=== PATIENT | female | born 1950 | race Caucasian/White ===

== ENCOUNTER 2017-09-04 14:48 | Emergency (ER) | payer MEDICARE, OTHER ==
--- NOTE | 2017-09-04 15:14 | RAD ---
LEFT SHOULDER 3 VIEWS: Date: 09/04/17 HISTORY: Pain. COMPARISON: None. FINDINGS: No acute fracture. No malalignment. Acromioclavicular joint is normal. There are some phleboliths along the left anterolateral chest wall. IMPRESSION: No acute fracture or malalignment. POS: [facility]
[2017-09-04] MEDS ORDERED: Ondansetron ODT 4 MG TAB ONE (16:33)
[2017-09-04] MEDS ORDERED: Morphine 4 MG/ML VIAL ONE (16:33)
== END 2017-09-04 17:03 | disposition home or self-care (01) ==
LOC: ERS 14:48
DX: M25.512 Pain in left shoulder (principal); G89.29 Other chronic pain; F41.9 Anxiety disorder, unspecified; F31.9 Bipolar disorder, unspecified; G40.909 Epilepsy, unspecified, not intractable, without status epilepticus; Z86.73 Personal history of transient ischemic attack (TIA), and cerebral infarction without residual deficits; Z85.528 Personal history of other malignant neoplasm of kidney; Z85.820 Personal history of malignant melanoma of skin
CPT/HCPCS: 96372; J2270; Q0162

== ENCOUNTER 2018-12-03 14:15 | Emergency (ER) | payer MEDICARE, OTHER ==
[2018-12-03] MEDS ORDERED: methylPREDNISolone Sod Succ/PF 125 MG/2 ML VIAL ONE (14:50)
--- NOTE | 2018-12-03 15:18 | RAD ---
2 VIEW CHEST: Date: 12/03/18 HISTORY: Cough. FINDINGS: Lungs are clear. Heart and mediastinum unremarkable. Osseous structures unremarkable. IMPRESSION: No acute abnormality. POS: [facility]
[2018-12-03 15:19] LABS: #Eosinphils 0.1 thou/uL (0.0-0.7); #Lymphocytes 1.1 thou/uL (1.20-3.40); #Monocytes 0.3 thou/uL (0.11-0.59); #Neutrophils 2.7 thou/uL (1.40-6.50); %Basophils 0.2 % (0.0-1.0); %Eosinophils 1.3 % (0.0-10.0); %Lymphocytes 25.3 % (21.0-51.0); %Monocytes 7.8 % (0.0-10.0); %Neutrophils 65.3 % (42.0-75.0); Mean Corpuscular HGB CONC 34.6 g/dL (32.0-36.0); Mean Corpuscular Hemoglobin 32.5 pg (27.0-31.0); Mean Platelet Volume 7.4 fL (7.4-10.4); Platelet Count 235 thou/uL (130-400); RBC Distribution Width 11.6 % (11.5-14.5); Red Blood Cell (RBC) Count 4.01 mill/uL (4.20-5.40); White Blood Cell (WBC) Count 4.2 thou/uL (4.8-10.8)
[2018-12-03 15:45] LABS: ALT (SGPT) 33 U/L (8-55); AST (SGOT) 24 U/L (5-34); Albumin 4.5 g/dL (3.4-4.8); Alkaline Phosphatase 94 U/L (40-150); Anion Gap 13 mmol/L (10-20); BUN (Urea Nitrogen) 20 mg/dL (9.8-20.1); Bilirubin, Total 0.2 mg/dL (0.2-1.2); Calc. Creatinine Clearance 0 mL/min (70-130); Calcium 9.6 mg/dL (7.8-10.44); Carbon Dioxide 23 mmol/L (23-31); Chloride 102 mmol/L (98-107); Estimated GFR-MDRD 37; Globulin 2.4 g/dL (2.4-3.5); Glucose 106 mg/dL (80-115); Potassium 4.2 mmol/L (3.5-5.1); Protein, Total 6.9 g/dL (6.0-8.3); Sodium 134 mmol/L (136-145)
== END 2018-12-03 16:08 | disposition home or self-care (01) ==
LOC: ERS 14:15
DX: J44.0 Chronic obstructive pulmonary disease with (acute) lower respiratory infection (principal); J18.9 Pneumonia, unspecified organism; J44.1 Chronic obstructive pulmonary disease with (acute) exacerbation; F31.9 Bipolar disorder, unspecified; F41.9 Anxiety disorder, unspecified; G40.909 Epilepsy, unspecified, not intractable, without status epilepticus; Z86.73 Personal history of transient ischemic attack (TIA), and cerebral infarction without residual deficits; Z85.820 Personal history of malignant melanoma of skin; Z79.899 Other long term (current) drug therapy; Z85.528 Personal history of other malignant neoplasm of kidney
CPT/HCPCS: 36415; 71046; 80053; 85025; 94640; 96374; J2930; J7620

== ENCOUNTER 2019-06-27 08:04 | Emergency (ER) | payer MEDICARE ==
[2019-06-27] MEDS ORDERED: Ketorolac Tromethamine 30 MG/ML VIAL ONE (08:31)
[2019-06-27 08:50] LABS: #Eosinphils 0.1 thou/uL (0.0-0.7); #Lymphocytes 1.4 thou/uL (1.20-3.40); #Monocytes 0.6 thou/uL (0.11-0.59); #Neutrophils 2.7 thou/uL (1.40-6.50); %Eosinophils 1.8 % (0.0-10.0); %Lymphocytes 29.3 % (21.0-51.0); %Monocytes 12.4 % (0.0-10.0); %Neutrophils 55.5 % (42.0-75.0); Hemoglobin 12.8 g/dL (12.0-16.0); Mean Corpuscular Hemoglobin 32.6 pg (27.0-31.0); Mean Platelet Volume 7.9 fL (7.4-10.4); Platelet Count 248 thou/uL (130-400); Red Blood Cell (RBC) Count 3.91 mill/uL (4.20-5.40); White Blood Cell (WBC) Count 4.9 thou/uL (4.8-10.8)
[2019-06-27 09:06] LABS: ALT (SGPT) 32 U/L (8-55); AST (SGOT) 26 U/L (5-34); Albumin 4.5 g/dL (3.4-4.8); Alkaline Phosphatase 112 U/L (40-110); Anion Gap 13 mmol/L (10-20); BUN (Urea Nitrogen) 22 mg/dL (9.8-20.1); Bilirubin, Total 0.3 mg/dL (0.2-1.2); Calc. Creatinine Clearance 0 mL/min (70-130); Calcium 9.7 mg/dL (7.8-10.44); Carbon Dioxide 24 mmol/L (23-31); Chloride 102 mmol/L (98-107); Estimated GFR-MDRD 37; Globulin 2.4 g/dL (2.4-3.5); Glucose 90 mg/dL (80-115); Potassium 4.3 mmol/L (3.5-5.1); Protein, Total 6.9 g/dL (6.0-8.3); Sodium 135 mmol/L (136-145)
--- NOTE | 2019-06-27 09:29 | RAD ---
Exam: Chest one view HISTORY:Fever. Comparison: 11/21/2016, 04/28/2019 FINDINGS: Cardiac silhouette: Normal Aorta: Unremarkable Pulmonary vessels: Normal Costophrenic angles: Clear LUNGS: No masses or consolidation. Pneumothorax: None Osseous abnormalities: None IMPRESSION: No acute cardiopulmonary process.
[2019-06-27] MEDS ORDERED: Dexamethasone 4 MG TAB ONE ×2 (10:59→11:01)
== END 2019-06-27 11:15 | disposition home or self-care (01) ==
LOC: ERS 08:04
DX: J44.1 Chronic obstructive pulmonary disease with (acute) exacerbation (principal); F31.9 Bipolar disorder, unspecified; F41.9 Anxiety disorder, unspecified
CPT/HCPCS: 36415; 71045; 80053; 83605; 83880; 84484; 85025; 87040; 93005; 93010; 94640; 96361; 96374; J1885; J7620; J8540

== ENCOUNTER 2020-03-05 04:11 | Emergency (ER) | payer MEDICARE | END 2020-03-05 05:01 | disposition home or self-care (01) | LOC: ERS 04:11 | DX: T23.201D Burn of second degree of right hand, unspecified site, subsequent encounter (principal); Z86.73 Personal history of transient ischemic attack (TIA), and cerebral infarction without residual deficits; F41.9 Anxiety disorder, unspecified; F31.9 Bipolar disorder, unspecified | CPT/HCPCS: 99282 ==

== ENCOUNTER 2020-03-08 17:08 | Inpatient (IN) | payer MEDICARE ==
[2020-03-08 22:41] VITALS: BMI 34.7
--- NOTE | 2020-03-08 23:16 | PDOC.FPRHP ---
- History of Present Illness Chief Complaint: altered History of Present Illness: Pt is a 70 yo F with a PMH of seizure disorder, anxiety, bipolar, CVA (2005), history of melanoma, kidney cancer, retinoblastoma who presents from an outside facility with chief complaint of altered mental status. Patient's called EMS as she was "just not acting right", last seen normal at 1500 on 03/07. thought patient had a seizure, but it was unwitnessed. As per at outside facility, her speech is changed: fragmented speech and slurring of words. At outside facility she was was repeating short phrases over and over again like "it's on". She has trouble focusing during questioning at this admission. She says she is fine and is unsure why she was transferred to this hospital. Denies CP, trauma, ST, COB, abdominal pain, numbness or tingling. However, questioning is limited as she is difficult to keep focused and keep her answers straight. She endorses compliance with medications, but family member at outside hospital says she is not compliant. ED Course: acetaminophen, Mg, ASA - Allergies/Adverse Reactions Allergies Allergy/AdvReac Type Severity Reaction Status Date / Time codeine Allergy Nausea Verified 06/27/19 17:58 Iodine and Iodide Containing Allergy Anaphylaxis Verified 06/27/19 17:58 Produc Penicillins Allergy Hives Verified 06/27/19 17:58 shellfish derived Allergy Verified 06/27/19 17:58 - Home Medications Medication Instructions Recorded Confirmed Type Butalb/Acetaminophen/Caffeine 1 tablet PO BID PRN 08/19/16 03/09/20 History [Butalb/Acetaminophen/Caffeine 50/325/40] Cephalexin 500 mg PO BID 03/09/20 03/09/20 History Doxepin HCl 20 mg PO HS 03/09/20 03/09/20 History Hydroxychloroquine Sulfate 200 mg PO BID 03/09/20 03/09/20 History Linaclotide [Linzess] 290 mcg PO QAM 03/09/20 03/09/20 History carBAMazepine [Carbamazepine] 200 mg PO BID 03/09/20 03/09/20 History chlorproMAZINE HCl 300 mg PO HS 03/09/20 03/09/20 History traZODone HCl [Trazodone HCl] 450 mg PO HS 03/09/20 03/09/20 History - History PMHx: seizure disorder, anxiety, bipolar, CVA (2006), history of melanoma, kidney cancer, retinoblastoma PSHx: left nephrectomy (2011), removal of right eye 2/2 retinoblastoma, benign tumor removed from abdomen, plastic surgery to face with removal of melanoma, back surgery FHx: mom- heart problems dad- bone cancer Social: denies alcohol, drugs, tobacco. Patient's family member endorses heavy alcohol consumption - Review of Systems ROS unobtainable: due to mental status (questioning is unreliable as patient states "yes" then "no" and changes the subject) - Vital signs BP: 102/62 HR: 103 RR: 20 Tmax: 97.4 Pox: 99% on RA Wt: - Physical Exam Constitutional: NAD HEENT: normocephalic and atraumatic, EOMI, grossly normal hearing Heart: RRR, normal S1/S2 Lungs: CTAB, no respiratory distress Abdomen: soft, non-tender, bowel sounds present Musculoskeletal: normal structure, normal tone -Musculoskeletal: right hand wrapped; burn to dorsal aspect of right hand that is second degree Neurological: no focal deficit, CN II-XII intact, normal sensation Skin: no rash/lesions, good turgor, capillary refill <2 seconds Heme/Lymphatic: no unusual bruising or bleeding, no purpura -Psychiatric: patient is unable to maintain focus. tangential thought process. Non bizarre thought content. Denies SI/HI FMR H&P: Results - Labs Result Diagrams: 03/09/20 05:06 03/09/20 05:06 - EKG Interpretation EKG: normal sinus rhythm FMR H&P: A/P - Plan encephalopathy 2/2 seizure vs stroke vs alcohol withdrawal vs psychiatric disorder -CT head and neck, CXR neg at outside facility -history of seizure disorder, and heavy alcohol use as per family member at outside facility -extensive past psych history as per patient, unable to get ahold of family to confirm baseline during admission and confirm compliance of medications -MRI brain pending, follow up results -follow up TSH -electrolytes WNL, UDS positive for barbituates but patient does take Fioricet at home -Consider neuro consult vs MHMR Elevated Cr likely 2/2 CKD -patient is poor historian and unsure if she has a hx of CKD -continue to monitor -avoid nephrotoxic agents if able seizure disorder -aware, continue home meds anxiety -aware, continue home meds bipolar -aware, continue home meds CVA (2005) -aware hx of melanoma -aware hx of kidney cancer -aware hx of retinoblastoma -aware alcohol abuse -aware, ASE protocol in place PCP: Dr. Payne in [place], [place] Code: FULL DVT ppx: Lovenox Diet: HH Dispo: admit to stroke, Obs. anticipated LOS < 48 hours FMR H&P: Upper Level - Plan Date/Time: 03/08/20 2316 IElie [email or web address], have evaluated this patient and agree with findings/plan as outlined by hospital internship resident. Pertinent changes/additions are listed here. 70yo F with pmh of bipolar presents from outside ER for direct admission for AMS. Pt was unable to give any meaningful hx and was unable to be contacted. Per chart review pt had some slurred speech, difficult word finding and repetitive phrases in [place], otherwise no neuro deficits. CT Brain, CXR, UDS, trop, and EKG were all normal. ER physician report states that she has seizure disorder and rarely takes her medications, her thought she may have had one a day ago and that she drinks alcohol in excess. On exam she is a very challenging historian, oriented to person and time but not place, good eye contact, speech normal for rhythm rate and tone, thought content non-bizzar but process is tangential. She often contradicts herself answering "yes" then "no" seconds later. No SI/HI. A/P AMS -though differential is broad more likely possibilities include seizure, alcohol or medication withdrawal, b1/12/thiamine deficiency, developing champ. Will complete stroke workup with MRI brain, order TSH, and repeat metabolic panel. Plan to attempt communication with again in morning to gain more info on baseline mental status. other chronic medical conditions will need to be elucidated by in AM and will hopefully assist in diagnosis. CODE: FULL dispo: obs PCP: [facility]ER[facility] Addendum - Attending - Attending Attestation Date/Time: 03/09/20 1410 I personally evaluated the patient and discussed the management with the team. I agree with the History, Examination, Assessment and Plan documented above with any addition or exceptions noted below.
[2020-03-09] MEDS ORDERED: Acetaminophen 325 MG TAB PO PRN
[2020-03-09] MEDS ORDERED: Calcium Carbonate 500 MG ChewTAB PO PRN
[2020-03-09] MEDS ORDERED: Ondansetron ODT 4 MG TAB PO PRN
[2020-03-09 02:01] LABS: Thyroid Stimulating Hormone 0.8874 uIU/mL (0.35-4.94)
[2020-03-09] MEDS: hydrOXYzine 25 MG TAB PO PRN ×2 (02:09→22:25)
[2020-03-09 05:29] LABS: #Lymphocytes 0.8 thou/uL (1.20-3.40); #Monocytes 0.8 thou/uL (0.11-0.59); #Neutrophils 4.4 thou/uL (1.40-6.50); %Basophils 0.4 % (0.0-1.0); %Eosinophils 0.8 % (0.0-10.0); %Lymphocytes 13.4 % (21.0-51.0); %Monocytes 12.7 % (0.0-10.0); %Neutrophils 72.7 % (42.0-75.0); Hemoglobin 10.4 g/dL (12.0-16.0); Mean Corpuscular Hemoglobin 32.4 pg (27.0-31.0); Mean Corpuscular Volume 95.4 fL (78.0-98.0); Mean Platelet Volume 7.8 fL (7.4-10.4); Platelet Count 256 thou/uL (130-400); RBC Distribution Width 12.2 % (11.5-14.5); Red Blood Cell (RBC) Count 3.22 mill/uL (4.20-5.40); White Blood Cell (WBC) Count 6.1 thou/uL (4.8-10.8)
[2020-03-09 05:57] LABS: ALT (SGPT) 35 U/L (8-55); AST (SGOT) 25 U/L (5-34); Albumin 3.7 g/dL (3.4-4.8); Alkaline Phosphatase 104 U/L (40-110); Anion Gap 15 mmol/L (10-20); BUN (Urea Nitrogen) 14 mg/dL (9.8-20.1); Bilirubin, Total 0.2 mg/dL (0.2-1.2); Calc. Creatinine Clearance 76 mL/min (70-130); Calcium 9.2 mg/dL (7.8-10.44); Carbon Dioxide 19 mmol/L (23-31); Chloride 104 mmol/L (98-107); Estimated GFR-MDRD 47; Globulin 2.3 g/dL (2.4-3.5); Glucose 111 mg/dL (83-110); Potassium 3.9 mmol/L (3.5-5.1); Sodium 134 mmol/L (136-145)
--- NOTE | 2020-03-09 05:57 | PDOC.FM ---
- Subjective Subjective: Patient more alert and oriented this AM. Tells me all about past surgeries she has had. First seizure she had was when she was 33. Last seizure was Saturday. She reports not having taken her carbamazepine since Saturday evening. She is not sure why she did not take it. She cannot tell me all the names of her medications except her trazodone 300mg which she has not received. She does not really remember what happened yesterday. However, she tells me Saturday she had the seizure while the oven was open and on at 350 degrees F and that's how she burned her hand. She has a defect on her tongue that was from a seizure. Pt reports she has only slept 3-4 hrs per night since Saturday. Asked her if she felt this was a manic episode related to her bipolar. She said she had bipolar disorder back in 1983 when she had a "nervous breakdown" but has not had issues since then. She can clearly tell me who her psychiatrist is this morning and says she first saw Dr. Doshi of neurology for her seizures. - Objective MAR Reviewed: Yes Vital Signs & Weight: Vital Signs (12 hours) Temp Pulse Resp BP Pulse Ox 03/09/20 04:02 97.7 F 103 H 18 116/68 97 03/09/20 00:02 98.3 F 105 H 18 136/83 94 L Weight Weight 106.549 kg Result Diagrams: 03/09/20 05:06 03/09/20 05:06 Phys Exam - Physical Examination Constitutional: NAD HEENT: PERRLA, sclera anicteric dry MMs, right eye enucleated, R side tongue defect Neck: full ROM Respiratory: no wheezing, clear to auscultation bilateral Cardiovascular: RRR (overnight telemetry sinus tach) systolic 2/6 murmur heard best over RUSB, radiates to carotids b/l Gastrointestinal: soft, non-tender, no distention Musculoskeletal: no edema, pulses present (strength 5/5 in UEs/LEs b/l) Neurological: moves all 4 limbs (DTRs 1+, repetition intact, very mild word finding difficulty, remote/recent memory wnl) speech garbled, some mix up of numbers/words when asked the date Psychiatric: normal affect, A&O x 3 Deviation from normal: 2nd deg burn on dorsum of R hand Dx/Plan - Plan Plan: Acute encephalopathy 2/2 seizure vs stroke vs alcohol withdrawal vs psychiatric disorder - patient denies ever having alcohol abuse problem, drinks 1-2 beers per night. Denies seizures from alcohol withdrawal. - extensive past psych history as per patient - MRI brain pending, ordered valium prn for exam - TSH wnl - Consider neuro consult with EEG. NARENDRA vs NARENDRA on CKD - continue to monitor - avoid nephrotoxic agents CVA (2005) Seizure disorder Anxiety Bipolar -aware, continue home meds Hx of melanoma Hx of kidney cancer Hx of retinoblastoma - treated with surgery, denies current cancer history Alcohol abuse ? - ASE protocol in place - will call this AM to confirm PCP: Dr. Payne in [place], [place] Code: FULL DVT ppx: Lovenox Diet: HH Dispo: admit to stroke, Obs. anticipated LOS < 48 hours Addendum - Attending - Attending Attestation Date/Time: 03/09/20 1411 I personally evaluated the patient and discussed the management with Dr. Patton. I agree with the History, Examination, Assessment and Plan documented above with any addition or exceptions noted below. Patient distractable with poor concentration. She thinks it is March 10. She cannot recount months backwards. Perhaps mild dysarthria, but no focal signs. Agree with above workup.
[2020-03-09 06:17] LABS: Magnesium 1.9 mg/dL (1.6-2.6); Phosphorus 2.4 mg/dL (2.3-4.7)
[2020-03-09] MEDS: Enoxaparin Sodium 40 MG/0.4 ML SYRINGE SC SCH (08:53)
[2020-03-09] MEDS: Diazepam 10 MG/2 ML SYRINGE IVP SCH ×2 (08:53→15:07)
[2020-03-09] MEDS: Folic Acid/Vit B Comp W-C PO SCH (08:53)
--- NOTE | 2020-03-09 13:23 | PDOC.BPN ---
- Brief Progress Note Called pt's Kofi. He reports pt's baseline is able to have normal conversations in a logical manner; she is a very educated woman, he says. He denies any alcohol abuse or alcohol problems of the patient. Says they may drink alcohol once per month. Denies she ever had excessive use of alcohol. He reports he was hospitalized last week for stroke rule out Saturday through . While he was in the hospital, he says patient fell and burned her hand. When he got home , he said she was seizing and suspects she stoppe d taking her anti-seizure medication while he was in the hospital. This is uncharacteristic of her; he says she would always take her medicine.
--- NOTE | 2020-03-09 15:16 | PDOC.EEG ---
Neurology EEG Report - Report Report: This EEG was performed using 24 channel [employer] video digital EEG machine with 24 disc electrodes. This was an extended 2-hours 7 minutes of inpatient video EEG recording. Digital analysis of the EEG was done for Semaj and seizure detection which revealed no abnormalities Background: The posterior background rhythm is not observed. Hyperventilation: Not performed. Photic stimulation. Bioccipital symmetric response not seen with photic stimulation. Sleep: No stage change was observed. EEG diagnosis: Intermittent irregular theta activity seen during the recording. Absence of posterior background rhythm. Clinical interpretation: This EEG is consistent with mild to moderate generalized nonspecific cerebral dysfunction.
--- NOTE | 2020-03-09 16:48 | MRI ---
MRI BRAIN NONCONTRAST: 03/09/20 HISTORY: 70-year-old female with altered mental status. FINDINGS: The ventricles are normal in size and configuration. There is no major intraaxial signal abnormality , restricted diffusion, midline shift or any other mass effect, recent intraaxial hemorrhage, or extr aaxial fluid collection. In the right orbit, there is a prosthetic globe. IMPRESSION: 1. Normal brain. 2. Right globe prosthesis. jn[] POS: [facility]
[2020-03-09 18:20] LABS: SARS-CoV-2 MS2 Positive; SARS-CoV-2 N Gene Negative; SARS-CoV-2 S Gene Negative; SARS-CoV-2 by NAA Not Detected (NotDetected); SARS-CoV-2 orf1ab Negative
[2020-03-09] MEDS ORDERED: traZODone HCl 150 MG TAB PO SCH (21:00)
[2020-03-10] MEDS ORDERED: Fioricet 325/50/40 mg Tablet PO PRN (00:04)
[2020-03-10] MEDS ORDERED: Ziprasidone 20 MG VIAL IM PRN (00:07)
[2020-03-10] MEDS ORDERED: Sterile Water 10 ML VIAL FS PRN (00:15)
[2020-03-10 04:33] LABS: #Lymphocytes 1.2 thou/uL (1.20-3.40); #Monocytes 0.8 thou/uL (0.11-0.59); %Basophils 0.3 % (0.0-1.0); %Eosinophils 0.4 % (0.0-10.0); %Lymphocytes 19.5 % (21.0-51.0); %Monocytes 13.1 % (0.0-10.0); %Neutrophils 66.6 % (42.0-75.0); Hemoglobin 11.1 g/dL (12.0-16.0); Mean Corpuscular HGB CONC 33.3 g/dL (32.0-36.0); Mean Corpuscular Hemoglobin 31.7 pg (27.0-31.0); Mean Corpuscular Volume 95.2 fL (78.0-98.0); Mean Platelet Volume 7.4 fL (7.4-10.4); Platelet Count 274 thou/uL (130-400); RBC Distribution Width 12.3 % (11.5-14.5); Red Blood Cell (RBC) Count 3.49 mill/uL (4.20-5.40); White Blood Cell (WBC) Count 6.1 thou/uL (4.8-10.8)
[2020-03-10 04:54] LABS: ALT (SGPT) 33 U/L (8-55); AST (SGOT) 24 U/L (5-34); Albumin 3.7 g/dL (3.4-4.8); Alkaline Phosphatase 106 U/L (40-110); Anion Gap 14 mmol/L (10-20); BUN (Urea Nitrogen) 15 mg/dL (9.8-20.1); Bilirubin, Total 0.2 mg/dL (0.2-1.2); Calc. Creatinine Clearance 80 mL/min (70-130); Calcium 9.1 mg/dL (7.8-10.44); Carbon Dioxide 22 mmol/L (23-31); Chloride 104 mmol/L (98-107); Estimated GFR-MDRD 50; Globulin 2.6 g/dL (2.4-3.5); Glucose 105 mg/dL (83-110); Protein, Total 6.3 g/dL (6.0-8.3); Sodium 136 mmol/L (136-145)
--- NOTE | 2020-03-10 06:44 | PDOC.FM ---
- Subjective Subjective: Overnight patient was agitated and tried calling 911 twice. Geodon was given. She continues to have distracted, pressured and tangential speech. Around 6 AM this morning she fell and was found on the ground in her room, saying she hit her knees and head. CT Head ordered; I reviewed and looks negative. Awaiting official report. - Objective MAR Reviewed: Yes Vital Signs & Weight: Vital Signs (12 hours) Temp Pulse Resp BP Pulse Ox 03/10/20 05:39 98 F 108 H 20 151/82 H 97 03/10/20 04:00 98.1 F 105 H 16 139/78 94 L 03/09/20 20:00 98.7 F 109 H 14 117/79 96 Weight Admit Weight 106.549 kg Weight 106.549 kg I&O: 03/08/20 03/09/20 03/10/20 06:59 06:59 06:59 Intake Total 800 1220 Output Total 1500 Balance -700 1220 Result Diagrams: 03/10/20 04:20 03/10/20 04:20 Phys Exam - Physical Examination Constitutional: NAD Respiratory: no wheezing, clear to auscultation bilateral Cardiovascular: RRR (murmur unchanged from yesterday) Gastrointestinal: soft, non-tender, no distention Musculoskeletal: pulses present Neurological: non-focal tangential, pressured speech, illogical thought process. Psychiatric: A&O x 3 Dx/Plan - Plan Plan: Acute encephalopathy 2/2 seizure vs psychiatric disorder - MRI normal. No evidence of stroke or brain bleed. - EEG showing mild to moderate nonspecific cerebral dysfunction, no current seiz ures. Does not rule out seizure from home. Would be unlikely to have a postictal phase lasting 5-7 days, when reported she was having seizure. - Due to hx of bipolar disorder, pt may be having manic episode. I have contacted her psychiatrist's office [facility] and left a message. - RNs to call psych office and ask for records to be faxed to be sure she has all appropriate psych meds on board. Have also asked them to contact her [facility] for records to confirm diagnosis of RA (which pt reported) and see if any other autoimmune processes could be contributing to her acute encepha lopathy. Per pharm review patient has been on hydroxychloroquine and prednisone 10mg. If autoimmune encephalopathy, pt may benefit from steroids. - Curbsided neurology, and they recommended contact of psychiatry is appropriate at this time. NARENDRA vs NARENDRA on CKD, improving - continue to monitor CVA (2005) Seizure disorder Anxiety Bipolar - aware, continue home meds - psych contacted. Hx of melanoma Hx of kidney cancer Hx of retinoblastoma PCP: Dr. Payne in [place], [place] Code: FULL DVT ppx: Lovenox Diet: HH Dispo: inpatient, stroke. Anticipated LOS > 48 hours. Addendum - Attending - Attending Attestation Date/Time: 03/10/20 1792 I personally evaluated the patient and discussed the management with Dr. Patton. I agree with the History, Examination, Assessment and Plan documented above with any addition or exceptions noted below. Patient is quite agitated, with somewhat pressured speech and wants to call her dentist's , who she say she is good friends with. Did not sleep last night. Will d/w Dr. Albright.
--- NOTE | 2020-03-10 07:56 | CT ---
CT BRAIN NONCONTRAST: DATE: 03/10/2020 HISTORY: 70-year-old female status post acute head trauma from fall FINDINGS: There is no evidence of acute intra-axial or extra-axial hemorrhage. There is no midline shift or any other mass effect. There is no extra-axial fluid collection. There is no evidence of obstructive hydrocephalus. Calvarium is intact. Prosthetic right globe. IMPRESSION: No acute intracranial findings.
[2020-03-10] MEDS ORDERED: carBAMazepine 200 MG TAB PO SCH (08:00)
[2020-03-10] MEDS: Folic Acid/Vit B Comp W-C PO SCH (10:06)
[2020-03-10] MEDS: Enoxaparin Sodium 40 MG/0.4 ML SYRINGE SC SCH (10:07)
[2020-03-10] MEDS ORDERED: risperiDONE 1 MG TAB PO PRN (11:11)
--- NOTE | 2020-03-10 11:38 | PDOC.BPN ---
- Brief Progress Note Encounter Date: 03/10/20 Encounter Time: 11:00 [facility] courtesy consult with Dr. Alix Albright regarding patient's manic episode in setting of bipolar 1 disorder. At this point we have ruled out medical conditions contributing to patient's altered state. Symptoms include delusions, agitation, grandiosity, pressured speech, and distractibility. Denies SI and hallucinations. Given patient's age and polypharmacy, Dr. Albright recommends the following mgmt of pt's home meds: - stop and do not continue trazodone - do not initiate eszopiclone - do not initiate doxepin - titrate thorazine down by 100mg each day. Her home dose is not high enough to treat psychotic symptoms and combination w/ trazodone has tachycardia and other cardiac effects. - INCREASE carbamazepine to 200 mg TID (or 200mg BID w/ 400mg at night) - START Risperidone 0.5-1 mg OR haldol 2-5 mg at night and as prn - If patient becomes hostile or very agitated, may use ziprasidone IM. I have made these changes, increased carbamazepine and started risperidone for the patient. Will update family on diagnosis and plan of care. Continue to monitor CBC, CMP. Recheck carbamazepine level in 2-3 days.
[2020-03-10] MEDS: risperiDONE 1 MG TAB PO SCH (11:59)
[2020-03-10] MEDS: carBAMazepine 200 MG TAB PO SCH ×2 (11:59→16:45)
[2020-03-10] MEDS ORDERED: traZODone HCl 150 MG TAB PO SCH (21:00)
[2020-03-10] MEDS ORDERED: Doxepin HCl 10 MG CAP PO SCH (21:00)
[2020-03-10] MEDS ORDERED: chlorproMAZINE HCl 25 MG TAB PO SCH ×2 (21:00)
[2020-03-10] MEDS ORDERED: Benzonatate 100 MG CAP PO PRN (23:15)
[2020-03-11 05:35] LABS: #Eosinphils 0.1 thou/uL (0.0-0.7); #Lymphocytes 1.3 thou/uL (1.20-3.40); #Monocytes 0.7 thou/uL (0.11-0.59); #Neutrophils 3.9 thou/uL (1.40-6.50); %Basophils 0.7 % (0.0-1.0); %Eosinophils 1.5 % (0.0-10.0); %Lymphocytes 20.9 % (21.0-51.0); %Monocytes 12.2 % (0.0-10.0); %Neutrophils 64.7 % (42.0-75.0); Hemoglobin 10.7 g/dL (12.0-16.0); Mean Corpuscular HGB CONC 32.8 g/dL (32.0-36.0); Mean Corpuscular Hemoglobin 31.2 pg (27.0-31.0); Mean Corpuscular Volume 95.2 fL (78.0-98.0); Mean Platelet Volume 7.3 fL (7.4-10.4); Platelet Count 285 thou/uL (130-400); RBC Distribution Width 12.3 % (11.5-14.5); Red Blood Cell (RBC) Count 3.42 mill/uL (4.20-5.40)
[2020-03-11 05:57] LABS: ALT (SGPT) 37 U/L (8-55); AST (SGOT) 25 U/L (5-34); Albumin 3.4 g/dL (3.4-4.8); Alkaline Phosphatase 102 U/L (40-110); Anion Gap 13 mmol/L (10-20); BUN (Urea Nitrogen) 18 mg/dL (9.8-20.1); Bilirubin, Total 0.2 mg/dL (0.2-1.2); Calc. Creatinine Clearance 79 mL/min (70-130); Carbon Dioxide 25 mmol/L (23-31); Chloride 103 mmol/L (98-107); Estimated GFR-MDRD 49; Globulin 2.6 g/dL (2.4-3.5); Glucose 94 mg/dL (83-110); Potassium 4.5 mmol/L (3.5-5.1); Sodium 136 mmol/L (136-145)
--- NOTE | 2020-03-11 06:23 | PDOC.FM ---
- Subjective Subjective: Patient sleeping upon my arrival. Says she slept "like a top." Her speech is much more slowed this AM. She did not remember much from past week; did not remember her was in hospital last week. Asked me where she lived and where her was, also asked where she was. - Objective MAR Reviewed: Yes Vital Signs & Weight: Vital Signs (12 hours) Temp Pulse Resp BP Pulse Ox 03/10/20 21:06 96 03/10/20 19:58 98.3 F 116 H 16 115/59 L 96 Weight Admit Weight 106.549 kg Weight 106.549 kg I&O: 03/09/20 03/10/20 03/11/20 06:59 06:59 06:59 Intake Total 800 1220 360 Output Total 1500 Balance -700 1220 360 Result Diagrams: 03/11/20 05:03 03/11/20 05:03 Phys Exam - Physical Examination Constitutional: NAD Respiratory: no wheezing, clear to auscultation bilateral Cardiovascular: RRR, no significant murmur Gastrointestinal: soft Musculoskeletal: no edema, pulses present Deviation from normal: AxO x2, speech normal rate, less distractible today Dx/Plan - Plan Plan: Acute manic episode due to bipolar 1 disorder - ruled out medical causes of acute encephalopathy - patient's symptoms meet criteria for manic episode - courtesy psych consult. Medications simplified and adjusted to carbamazepine and risperdal. Will optimize dosing. - did not require extra antipsychotics overnight. NARENDRA vs NARENDRA on CKD, resolved - continue to monitor, favor NARENDRA on CKD as GFR is 49 with creatinine of 1.10 CVA (2005) Seizure disorder Anxiety Bipolar - see above Hx of melanoma Hx of kidney cancer Hx of retinoblastoma PCP: Dr. Pyane in [place], [place] Code: FULL DVT ppx: Lovenox Diet: HH Dispo: inpatient, stroke. Stable for transfer to medical. Will call today and discuss return home plans. If he needs assistance, will consult CM. Otherwise, she needs carbamazepine level drawn tomorrow or day after. Addendum - Attending - Attending Attestation Date/Time: 03/11/20 1003 I personally evaluated the patient and discussed the management with Dr. Patton. I agree with the History, Examination, Assessment and Plan documented above with any addition or exceptions noted below. Remarkably improved today and desires to go home. Improved affect and mood this AM. Continue to monitor.
[2020-03-11] MEDS: Folic Acid/Vit B Comp W-C PO SCH (09:22)
[2020-03-11] MEDS: risperiDONE 1 MG TAB PO SCH (09:22)
[2020-03-11] MEDS: carBAMazepine 200 MG TAB PO SCH ×2 (09:22→12:32)
[2020-03-11] MEDS: Enoxaparin Sodium 40 MG/0.4 ML SYRINGE SC SCH (09:23)
[2020-03-11 11:34] VITALS: BP 130/58; TEMP 98.7
[2020-03-11] MEDS ORDERED: chlorproMAZINE HCl 25 MG TAB PO SCH (21:00)
--- NOTE | 2020-03-12 03:46 | DIS ---
DATE OF ADMISSION: 03/09/2020 DATE OF DISCHARGE: 03/11/2020 RESIDENT: Marcelle Patton MD ADMITTING ATTENDING: Dr. Barillas. DISCHARGE ATTENDING: Dr. Barillas. PROCEDURES: 1. CT of brain at [facility]. Impression: No acute intracranial findings. 2. CT of the cervical spine outside ER. Impression: Degenerative changes, no acute fracture. 3. Chest x-ray. Impression: Evidence of left basilar atelectasis. Otherwise clear. 4. MRI of brain. Impression: Normal brain, right globe prosthesis. 5. CT of brain on 03/10/2020 due to unwitnessed fall. Impression: No acute intracranial abnormality. 6. EEG showing no seizure abnormality. Consistent with [id number] generalized nonspecific cerebral dysfunction. PRIMARY DIAGNOSES: 1. Acute manic episode. 2. Bipolar I disorder. 3. Acute kidney injury on chronic kidney disease, resolved. 4. Hypomagnesemia, resolved. SECONDARY DIAGNOSES: 1. History of cerebrovascular accident. 2. Seizure disorder. 3. Anxiety. 4. History of melanoma, kidney cancer, and retinoblastoma. DISCHARGE MEDICATIONS: 1. Nephro-Colt vitamin one tablet p.o. daily. 2. Risperidone 1 mg p.o. daily. 3. Carbamazepine 200 mg p.o. three times daily. 4. Thorazine 100 mg p.o. at bedtime x1 dose on day of discharge. 5. Linzess 290 mcg p.o. every morning. 6. Hydroxychloroquine 200 mg p.o. twice daily. DISCONTINUED MEDICATIONS: 1. Fioricet 1 tablet p.o. twice daily p.r.n. 2. Doxepin 20 mg p.o. at bedtime. 3. Cephalexin 500 mg p.o. twice daily. 4. Carbamazepine 200 mg p.o. twice daily. 5. Chlorpromazine 300 mg p.o. at bedtime. 6. Trazodone 450 mg p.o. at bedtime. HISTORY OF PRESENT ILLNESS AND HOSPITAL COURSE: This 70-year-old female presented to [facility] with altered mental status per her . He said that she was not acting right, and he was worried she had a seizure in that she was postictal. Her had been gone out of the house last Saturday through in the hospital due to concern for his own stroke, and he was not at home to monitor the patient. He said that he did not witness her burn her hand. He said his is usually alert and oriented x4 and holds intelligent conversations. The patient had MRI imaging to rule out stroke. No stroke was found. EEG did not show any current seizure activity. A TSH was checked and found to be normal at 0.8874. Vitamin B12 was checked and 466. The patient's magnesium was initially low, and this was replaced up to 1.9. The patient's folate was 4.60. The patient's urine drug screen was negative and serum drug screen was negative. Her carbamazepine level was 5.1 at the low end of the therapeutic range. She was COVID negative. Her urinalysis was also normal. She was slightly anemic with hemoglobin of 10.7 and hematocrit 32.5 and platelet count of 285. The patient was deemed to be having a manic episode. She was very tangential and distracted during conversation. She had pressured speech. She also had some grandiosity and delusions. She denied being able to sleep more than 3 hours per night over the past week. She states she had fallen and burned her hand on the oven at 350 degrees. [facility] psychiatry consult with Dr. Albright was done via telephone and medication recommendations were made. Her carbamazepine was increased and Risperdal was started while discontinuing her other sedating medications. The patient could also have been suffering from polypharmacy. The day after we changed her medications, the patient was calm, could not quite remember what is happened during her manic episode, but her speech was much slower and controlled. Discussed with the about going home and he agreed that he feels safe with her going home. Dr. Armando Ray's, her psychiatrist's, office was updated as to the medication changes. DISCHARGE INSTRUCTIONS: 1. Location: Home. 2. Activity: As tolerated. 3. Diet: Heart healthy. 4. Followup: Follow up with primary care provider within 7 days. Follow up with Dr. Armando Ray within 7 days. Repeat labs will be required on Saturday, March 14. The patient may come back to [facility] for these. She will need a CBC, a CMP, and a carbamazepine level. Job ID: [id number] [facility]
== END 2020-03-11 13:34 | disposition home or self-care (01) | DRG 885 ==
LOC: 2SE 17:08 → OBSVTOIN 03-09 15:50 → 2SE 03-10 18:29
PROVIDERS: ADMIT Family Medicine; ATTEND Family Medicine
DX: F30.9 Manic episode, unspecified (principal); N17.9 Acute kidney failure, unspecified; G93.49 Other encephalopathy; Z20.828 Contact with and (suspected) exposure to other viral communicable diseases; F41.9 Anxiety disorder, unspecified; N18.9 Chronic kidney disease, unspecified; F10.10 Alcohol abuse, uncomplicated; G40.909 Epilepsy, unspecified, not intractable, without status epilepticus; E83.42 Hypomagnesemia; Z86.73 Personal history of transient ischemic attack (TIA), and cerebral infarction without residual deficits; Z85.528 Personal history of other malignant neoplasm of kidney; Z85.820 Personal history of malignant melanoma of skin; Z88.5 Allergy status to narcotic agent; Z88.0 Allergy status to penicillin; Z91.041 Radiographic dye allergy status; Z91.013 Allergy to seafood; Z90.5 Acquired absence of kidney
CPT/HCPCS: 36415; 70450; 70551; 80053; 82607; 82746; 83735; 84100; 84425; 84443; 85025; 87635; 95712; 95819; 95957; J1650; J3360; J3486; Q0161; U0003

== ENCOUNTER → 2020-12-26 | Day surgery (SDC) | payer MEDICARE ==
[~2020-12-26] MED LIST: Iopamidol 370 76% 100 ML VIAL ONE
== END ==
LOC: CT 13:04 → RAD 13:05
PROVIDERS: ATTEND Family Medicine
DX: R22.1 Localized swelling, mass and lump, neck (principal); K22.8 Other specified diseases of esophagus; M19.09 Primary osteoarthritis, other specified site; M47.812 Spondylosis without myelopathy or radiculopathy, cervical region; M50.30 Other cervical disc degeneration, unspecified cervical region; I65.29 Occlusion and stenosis of unspecified carotid artery; Z88.0 Allergy status to penicillin; Z91.013 Allergy to seafood; Z91.041 Radiographic dye allergy status; Z97.0 Presence of artificial eye
CPT/HCPCS: 70491; 82565; Q9967